=== PATIENT | female | born 1950 | race Caucasian/White ===

== ENCOUNTER 2017-02-15 11:23 | Emergency (ER) | payer OTHER ==
[~2017-02-15] VITALS: Ht 165.1 cm; Wt 79.4 kg
[2017-02-15 11:36] VITALS: BP 172/82
--- NOTE | 2017-02-15 12:11 | RAD ---
Exam performed: 3 views left patient stepped down stairs and felt a pop in the posterior lateral left knee knee. Clinical indication: Pain in the posterior aspect, unable to bear weight. Date of Service: 02/15/17 Comparison:None available Findings: AP, oblique and lateral radiographs of the knee reveal normal alignment of the medial and lateral tibiofemoral joints. There is mild narrowing of the patellofemoral joint. The joint space is well-preserved. The articular margins are smooth. Evidence of calcific loose body or joint effusion is absent. Impression: Early degenerative changes involving the patellofemoral joint. No acute abnormality seen.
[2017-02-15] MEDS ORDERED: HYDR-971 PO (12:26)
--- NOTE | 2017-02-15 12:26 | PHYS DOC ---
Past Medical History Past Medical History: Hypertension Past Surgical History: , Hip Replacement, Tonsillectomy Additional Past Surgical Histo: L hip Alcohol Use: Occasionally Drug Use: None Adult General Chief Complaint Chief Complaint: KNEE INJURY HPI HPI Patient is a 66 year old female with history of hypertension who presents with left posterior knee pain mild in nature worse on bending the knee back that began today when she stepped off her RV. Patient states she heard a pop sound from the back of her knee. Patient is visiting from [place]. Review of Systems Review of Systems Constitutional: Denies fever or chills [] Eyes: Denies change in visual acuity, redness, or eye pain [] HENT: Denies nasal congestion or sore throat [] Musculoskeletal: Left posterior knee pain Integument: Denies rash or skin lesions [] Neurologic: Denies headache, focal weakness or sensory changes [] Endocrine: Denies polyuria or polydipsia [] Allergies Allergies Allergies Coded Allergies Type Severity Reaction Last Updated Verified latex Allergy Intermediate Hives 02/15/17 Yes Physical Exam Physical Exam Constitutional: Well developed, well nourished, no acute distress, non-toxic appearance. [] HENT: Normocephalic, atraumatic, bilateral external ears normal, oropharynx moist, no oral exudates, nose normal. [] Eyes: PERRLA, EOMI, conjunctiva normal, no discharge. [] Neck: Normal range of motion, no tenderness, supple, no stridor. [] Skin: Warm, dry, no erythema, no rash. [] Back: No tenderness, no CVA tenderness. [] Extremities: Left knee with no obvious deformity. Tenderness on palpation of the posterior aspect of the knee. Limited range of motion on flexion of the left knee. Adequate extension of the knee. Negative Jacqueline sign, negative Farrukh sign, last 2 left pedal pulse. Cap refill less than 2 seconds the left lower extremity. Sensation intact to the left lower extremity. Neurologic: Alert and oriented X 3, normal motor function, normal sensory function, no focal deficits noted. [] Psychologic: Affect normal, judgement normal, mood normal. [] Current Patient Data Vital Signs Vital Signs Date Time Temp Pulse Resp B/P (MAP) Pulse Ox O2 Delivery O2 Flow Rate FiO2 02/15/17 11:36 97.6 85 18 95 Room Air 97.6 EKG EKG [] Radiology/Procedures Radiology/Procedures []PROCEDURE: KNEE LEFT 4V Exam performed: 3 views left patient stepped down stairs and felt a pop in the posterior lateral left knee knee. Clinical indication: Pain in the posterior aspect, unable to bear weight. Date of Service: 02/15/17 Comparison:None available Findings: AP, oblique and lateral radiographs of the knee reveal normal alignment of the medial and lateral tibiofemoral joints. There is mild narrowing of the patellofemoral joint. The joint space is well-preserved. The articular margins are smooth. Evidence of calcific loose body or joint effusion is absent. Impression: Early degenerative changes involving the patellofemoral joint. No acute abnormality seen. DICTATED and SIGNED BY: CATALINO VELIZ MD DATE: 02/15/17 1203 CC: ANDRAE PRASAD MD; DAVID KHAN APRN ~ Course & Med Decision Making Course & Med Decision Making Pertinent Labs and Imaging studies reviewed. (See chart for details) Patient is in the ED with complaints of left knee pain after stepping off her RV. Left knee x-rays interpreted by radiologist was negative for any acute findings but noted for DJD of the knee. Patient was provided immobilizer and crutches in the ED. Immobilizer applied by the ED RN, neurovascular exam done by me is normal, cap refill less than 2 seconds. Ice elevation encouraged. She is to follow-up with her orthopedic doctor in [place] next week. Dragon Disclaimer Dragon Disclaimer This electronic medical record was generated, in whole or in part, using a voice recognition dictation system. Departure Departure Impression: Primary Impression: Left knee sprain Additional Impression: Degenerative joint disease of knee, left Disposition: 01 HOME, SELF-CARE Condition: STABLE Patient Instructions: Arthritis, Degenerative-Brief, Knee Sprain Additional Instructions: You were seen for left knee sprain. Your left knee x-rays are negative for any acute findings but noted for early degenerative changes also known as arthritis of the knee. Wear the immobilizer as needed and tolerated. Ice and elevate the extremity. Follow-up with your own orthopedic doctor in [place] next week. Scripts Hydrocodone/Apap 5-325 (NORCO 5-325 TABLET) 1 Each Tablet 1-2 TAB PO Q4-6HRS, #20 TAB Prov: DAVID KHAN APRN 02/15/17 Problem Qualifiers Primary Impression: Left knee sprain Encounter type: initial encounter Involved ligament of knee: unspecified ligament Qualified Codes: S83.92XA - Sprain of unspecified site of left knee, initial encounter Additional Impression: Degenerative joint disease of knee, left Osteoarthritis type: unspecified Qualified Codes: M17.12 - Unilateral primary osteoarthritis, left knee DAVID KHAN APRN February 15, 2017 12:26
[2017-02-15] MEDS ORDERED: HYDROcodone/APAP 5/325MG 1 TAB TABLET PO ONE (12:30)
== END 2017-02-15 12:33 | disposition home or self-care (01) ==
LOC: ER 12:33
DX: S83.92XA Sprain of unspecified site of left knee, initial encounter (principal); M17.9 Osteoarthritis of knee, unspecified; I10 Essential (primary) hypertension; Z96.642 Presence of left artificial hip joint; Z98.890 Other specified postprocedural states; Z91.040 Latex allergy status; X50.9XXA Other and unspecified overexertion or strenuous movements or postures, initial encounter; Y93.89 Activity, other specified; Y99.8 Other external cause status; Y92.89 Other specified places as the place of occurrence of the external cause
CPT/HCPCS: 29505; 73564; 99284-25